=== PATIENT | male | born 1970 | race Caucasian/White ===

== ENCOUNTER 2016-07-12 16:38 | Emergency (ER) | payer MEDICAID ==
[~2016-07-12] VITALS: Ht 160 cm; Wt 69.4 kg
[2016-07-12 18:41] VITALS: BP 101/60
== END 2016-07-12 18:41 | disposition home or self-care (01) ==
LOC: ED 16:38
DX: S33.5XXA Sprain of ligaments of lumbar spine, initial encounter (principal); G89.29 Other chronic pain; X58.XXXA Exposure to other specified factors, initial encounter; Y93.89 Activity, other specified; Y99.8 Other external cause status; Y92.89 Other specified places as the place of occurrence of the external cause
CPT/HCPCS: J2270; J2405

== ENCOUNTER 2018-07-24 14:52 | Emergency (ER) | payer MEDICAID ==
[~2018-07-24] VITALS: Ht 160 cm; Wt 77.6 kg
[2018-07-24 15:37] VITALS: Ht 160 cm; Wt 77.6 kg
[2018-07-24 18:15] VITALS: BP 125/80
== END 2018-07-24 18:15 | disposition home or self-care (01) ==
LOC: ED 14:52
DX: L84 Corns and callosities (principal); F17.210 Nicotine dependence, cigarettes, uncomplicated